=== PATIENT | female | born 1960 | race Caucasian/White ===

== ENCOUNTER → 2020-04-19 09:18 | Outpatient (CLI) | payer OTHER, SELFPAY ==
--- NOTE | 2020-04-19 09:24 | XR_ITS ---
PROCEDURE: XR ANKLE RT MIN 3V CLINICAL INDICATION: RT ANKLE PAIN COMPARISON: No exams were available for comparison FINDINGS: There is mild diffuse soft tissue swelling of the ankle both medially and laterally. The medial and lateral malleolus appear intact and the ankle mortise appears normal. There is a prominent osteophytic spur of the calcaneus at the insertion of the plantar tendon. There is minimal spurring of the anterior superior border of the talus near the talonavicular articulation. IMPRESSION: Mild diffuse soft tissue swelling, prominent calcaneal spur is noted, negative for acute fracture Dictated by: Dr. Pierre Connolly MD 04/19/2020 09:45 Dr. Pierre Connolly MD in [place] 04/19/2020 09:45
== END ==
PROVIDERS: PCP Nurse Practitioner Family; Visit Provider Nurse Practitioner Family
DX: M25.471 Effusion, right ankle (principal)
CPT/HCPCS: 73610

== ENCOUNTER → 2020-12-01 13:20 | Outpatient (CLI) | payer OTHER, SELFPAY ==
--- NOTE | 2020-12-01 13:23 | MR_ITS ---
PROCEDURE INFORMATION: Exam: MR Right Lower Extremity Joint Without Contrast; Ankle Exam date and time: 12/01/2020 1:23 PM Age: 60 years old Clinical indication: Pain; Ankle; Right; Additional info: Right ankle swelling. Ankle pain after walking [id number] ago. Medial sided ankle pain and swelling. Tender to touch. Prior x-ray 04-19-20 TECHNIQUE: Imaging protocol: MR of the Right lower extremity without contrast. Exam focused on the ankle. COMPARISON: DX XR ANKLE RT MIN 3V 04/19/2020 9:26 AM FINDINGS: Bones and cartilage: There is mild primary osteoarthritis of the talonavicular joint. A large plantar calcaneal enthesophyte is present. Mild subchondral edema and cystic change involving the posterior aspect of the tibial plafond in approximately an 11 mm region suggests overlying cartilage damage (series 6/image 17). Cystlike changes in the calcaneus located inferior to the angle of Gissane are typical for remnant penetrating vessels. Joint spaces: A mild talonavicular joint effusion decompresses along the dorsomedial talar head. LIGAMENTS: Distal tibiofibular syndesmosis: Unremarkable. No tear. Anterior talofibular ligament: Unremarkable. No tear. Posterior talofibular ligament: Unremarkable. No tear. Calcaneofibular ligament: Unremarkable. No tear. Deltoid ligament complex: Unremarkable. No tear. TENDONS: Flexor tendons of foot: Mild tenosynovitis involves the flexor digitorum longus tendon. Tibialis posterior tendon: Moderate tenosynovitis involves the tibialis posterior tendon. Mild increased T2 signal within the tibialis posterior tendon is consistent with mild tendinosis. Peroneal tendons: Mild tenosynovitis involves the peroneal tendon sheath. Extensor tendons of foot: Unremarkable as visualized. Tibialis anterior tendon: Unremarkable. Achilles tendon: There is no tear or significant tendinosis involving the Achilles tendon. Tarsal canal (Sinus tarsi): The sinus tarsi has normal fat signal. Tarsal tunnel: Unremarkable. Muscles: Unremarkable. Soft tissues: Moderate subcutaneous edema involves the posteromedial ankle. Plantar fascia: Mild thickening of the proximal plantar fascia has no significant surrounding edema, consistent with chronic mild plantar fasciitis (fasciopathy). IMPRESSION: 1. Probable significant cartilage damage involving an 11 mm region of the tibial plafond posteriorly. 2. Moderate tenosynovitis and mild tendinosis of the tibialis posterior tendon. 3. Mild tenosynovitis of the flexor digitorum longus and peroneal tendons. 4. 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 5. Chronic mild plantar fasciitis (fasciopathy) with large plantar calcaneal enthesophyte.
== END ==
PROVIDERS: PCP Nurse Practitioner Family; Visit Provider Nurse Practitioner Family
DX: M25.471 Effusion, right ankle (principal)
CPT/HCPCS: 73721

== ENCOUNTER 2022-10-07 11:09 | Emergency (ER) | payer OTHER, SELFPAY ==
[2022-10-07 11:20] VITALS: BP 178/94; PULSE 62; RESP 20; TEMP 36.8; O2SAT 99; BMI 37.8
--- NOTE | 2022-10-07 11:21 | EXP.UTC ---
Discharge Plan Disposition Patient Disposition: Home, Self-Care Condition: Good Prescriptions Prescriptions: New phenazopyridine [Pyridium] 200 mg tablet 200 mg PO Q8H 2 Days Qty: 6 0RF ciprofloxacin HCl [Cipro] 500 mg tablet 500 mg PO BID 7 Days Qty: 14 0RF No Action simvastatin 20 mg tablet 20 mg PO DAILY Label Comments: TAKE 1 TABLET BY MOUTH EVERY DAY AT BEDTIME levothyroxine 25 mcg tablet 25 mcg PO DAILY Label Comments: TAKE 1 TABLET BY MOUTH EVERY DAY IN THE MORNING ON AN EMPTY STOMACH lisinopril 10 mg tablet 10 mg PO DAILY Label Comments: TAKE 1 TABLET BY MOUTH DAILY meloxicam [Mobic] 7.5 mg tablet 7.5 mg PO DAILY 30 Days Qty: 30 2RF diclofenac sodium [Voltaren Arthritis Pain] 1 % gel 4 g TOPICAL QID PRN (Reason: pain) 90 Days Qty: 100 2RF Rx Instructions: apply to single ankle, foot; for foot includes sole/toes/top of foot prn pain hydrochlorothiazide 12.5 mg tablet 12.5 mg PO DAILY Label Comments: TAKE 1 TABLET BY MOUTH EVERY DAY IN THE MORNING Referrals Follow up/Referrals: Cara Shaw APRN [Primary Care Provider] - See instructions Activity Restrictions/Add. Instructions Additional Instructions/Restrictions: Drink plenty of fluids. Take tylenol or ibuprofen for pain or fever. Take the medications as directed. Follow up with your regular doctor. GO TO THE ER FOR ANY WORSENING SYMPTOMS The pyridium will make your urine turn orange, this is an expected side effect. It will stain your clothes if it comes into contact with them. We will culture the urine. That will tell what bacteria is causing your infection and which antibiotics Clinical Impressions Clinical Impression: UTI (urinary tract infection) Instructions Patient Instructions: Urinary Tract Infection, Urine Culture, DI for Urinary Tract Infection (UTI), Phenazopyridine Discharge ED Provider: Ha Granados [facility] General Stated complaint: pressure when trying to urinate Time Seen by Provider: 10/07/22 11:14 History of Present Illness Provider Complaint: She states that she has had dysuria, urinary frequency and urgency for the past 2 days. Related Data Home Medications Medication Instructions Recorded Confirmed levothyroxine 25 mcg tablet 25 mcg PO DAILY thyroid 01/31/21 10/07/22 lisinopril 10 mg tablet 10 mg PO DAILY High blood pressure 01/31/21 10/07/22 simvastatin 20 mg tablet 20 mg PO DAILY . 01/31/21 10/07/22 hydrochlorothiazide 12.5 mg tablet 12.5 mg PO DAILY Fluid 04/11/21 10/07/22 Previous Rx's Medication Instructions Recorded diclofenac sodium 1 % topical gel 4 g topical QID PRN pain 3 months 01/31/21 (Voltaren Arthritis Pain) #100 grams meloxicam 7.5 mg tablet (Mobic) 7.5 mg PO DAILY pain 30 days #30 01/31/21 tabs ciprofloxacin HCl 500 mg tablet 500 mg PO BID 7 days #14 tabs 10/07/22 (Cipro) phenazopyridine 200 mg tablet 200 mg PO Q8H 2 days #6 tabs 10/07/22 (Pyridium) Allergies Allergy/AdvReac Type Severity Reaction Status Date / Time No Known Allergies Allergy Verified 10/07/22 11:37 [facility] [place] Disclaimer: The information contained in this section may have been updated after the patient was seen, as this information can be updated by other users. Social History Smoking Status: Never smoker alcohol intake: never current occupational status: unemployed Travel in the last 8 weeks: None housing: house ROS Obtained: Yes All systems reviewed & no additional complaints except as documented Constitutional Constitutional: Reports system reviewed and no additional complaints, except as documented, Denies chills and Denies fever(s) Eyes Eyes: Denies eye discharge ENT Ears, Nose, Mouth, and Throat: Denies dysphagia, Denies sore throat and Denies throat swelling Cardiovascular Cardiovascular: Denies chest pain and Denies dyspnea Respir
[2022-10-07 11:40] LABS: Apearance,Urine Cloudy (Clear); Bilirubin,Urine Negative (Negative); Blood, Urine 3+ (Negative); Color,Urine Yellow (Yellow); Glucose,Urine (UA) Negative (Negative); Ketones,Urine Negative (Negative); Protein,Urine Negative (Negative); Urobilinogen,Urine 0.2 EU/dl (0.2)
[2022-10-07 11:41] LABS: UTC Leukocyte Esterase,Urine 2+ (Negative); UTC Nitrate,Urine Negative (Negative)
[2022-10-07 11:51] VITALS: BP 178/94; PULSE 62; RESP 20; TEMP 36.8; O2SAT 99
== END 2022-10-07 11:50 | disposition home or self-care (01) ==
PROVIDERS: Emergency Provider Nurse Practitioner Family; PCP Nurse Practitioner Family
DX: N39.0 Urinary tract infection, site not specified (principal); B96.29 Other Escherichia coli [E. coli] as the cause of diseases classified elsewhere
CPT/HCPCS: 81003; 87086; 87088; 87186; 99212; 99214; G0463